=== PATIENT | female | born 1970 | race Caucasian/White ===

== ENCOUNTER 2017-01-11 10:42 | Emergency (ER) | payer MEDICARE | END 2017-01-11 13:25 | disposition left against medical advice (07) | LOC: ER1 10:42 | DX: Z53.21 Procedure and treatment not carried out due to patient leaving prior to being seen by health care provider (principal) ==

== ENCOUNTER 2017-02-25 16:32 | Inpatient (IN) | payer BC, MEDICARE ==
[~2017-02-25] VITALS: Ht 157.5 cm; Wt 77.1 kg
[2017-02-25] MEDS ORDERED: LIPITOR TAB 1010 MG PO (19:20)
[2017-02-25] MEDS ORDERED: CYMBALTA30 MG PO (19:25)
[2017-02-25] MEDS ORDERED: VITAMIN B-1000 MCG/M IM (19:25)
[2017-02-25] MEDS ORDERED: NEURONTIN 300300 MG PO (19:26)
[2017-02-25] MEDS ORDERED: ESTRACE0.5 MG PO (19:26)
[2017-02-25] MEDS ORDERED: PROGESTERONE200 MG PO (19:27)
[2017-02-25] MEDS ORDERED: LEVOTHYROXINE112 MCG PO (19:27)
[2017-02-25] MEDS ORDERED: NABUMETONE750 MG PO (19:27)
[2017-02-25] MEDS ORDERED: ZANAFLEX 4 MG TA4 MG PO (19:28)
[2017-02-25] MEDS ORDERED: PHENERGAN 25 MG25 M1 PO (19:28)
[2017-02-25] MEDS ORDERED: MAXZIDE 75 MG-1 EACH PO (19:29)
[2017-02-25] MEDS ORDERED: TRAMADOL HCL50 MG PO (19:29)
[2017-02-25] MEDS ORDERED: VITAMIN D250000 UNIT PO (19:30)
[2017-02-26 07:44] LABS: HEMOGLOBIN 13.2 gm/dl (12.3-15.3); RED BLOOD COUNT 4.33 M/UL (4.00-5.10)
[2017-02-26 08:00] LABS: BUN/CREATININE RATIO 15 (0-10)
[2017-02-26 15:09] LABS: GLUCOSE,CSF 63 mg/dL (50-80)
[2017-02-26 15:21] LABS: TOTAL PROTEIN,CSF 333 mg/dL (20-45)
[2017-02-27 02:24] LABS: BUN/CREATININE RATIO 13 (0-10)
[2017-02-28 06:29] LABS: HEMOGLOBIN 12.6 gm/dl (12.3-15.3); RED BLOOD COUNT 4.13 M/UL (4.00-5.10); WHITE BLOOD COUNT 6.2 K/UL (4.5-11.0)
[2017-02-28 06:47] LABS: BUN/CREATININE RATIO 10 (0-10)
[2017-03-01 04:20] LABS: HEMOGLOBIN 12.5 gm/dl (12.3-15.3); RED BLOOD COUNT 4.08 M/UL (4.00-5.10)
[2017-03-01 04:28] LABS: WHITE BLOOD COUNT 7.9 K/UL (4.5-11.0)
[2017-03-01 04:43] LABS: BUN/CREATININE RATIO 12 (0-10)
== END 2017-03-01 18:00 | disposition home or self-care (01) | DRG 96 ==
LOC: MED SURG 4 16:32
PROVIDERS: Family Medicine; ADMIT Emergency Medicine
PROC: 30233S1 Transfusion of Nonautologous Globulin into Peripheral Vein, Percutaneous Approach (ICD-10-PCS; principal; 2017-02-25)
DX: G61.0 Guillain-Barre syndrome (principal); I10 Essential (primary) hypertension; E03.9 Hypothyroidism, unspecified; E78.5 Hyperlipidemia, unspecified; Z87.891 Personal history of nicotine dependence; Z86.61 Personal history of infections of the central nervous system; E55.9 Vitamin D deficiency, unspecified; E87.6 Hypokalemia
CPT/HCPCS: 36415; 77003; 80048; 80053; 82607; 82945; 83735; 84132; 84157; 85027; 87070; 87205; 89051; J1572; J2405; J3420